=== PATIENT | female | born 1955 | race Caucasian/White ===

== ENCOUNTER 2017-12-31 09:56 | Day surgery (SDC) | payer OTHER ==
[~2017-12-31 09:56] MED LIST: ACETAZOLAMIDE 250 MG TAB PO; EPINEPHrine 1 MG INJ; LIDOCAINE 1% (MPF) 10 ML INJ; LIDOCAINE 2% (SDV) 5 ML INJ; PROPOFOL 200 MG INJ
[2017-12-31] MEDS ORDERED: ACETAZOLAMIDE 250 MG TAB PO (11:00)
[2017-12-31] MEDS: DICLOFENAC 0.1% 2.5 ML OPH OPER (11:17)
[2017-12-31] MEDS: TROPICAMIDE 1% 3 ML OPH OPER (11:18)
[2017-12-31] MEDS: PHENYLephrine 10% 5 ML OPH OPER (11:18)
[2017-12-31] MEDS: LIDOCAINE 3.5% GEL TUBE OPER (11:18)
[2017-12-31] MEDS: MOXIFLOXACIN 0.5% 3 ML OPH OPER (11:18)
[2017-12-31] MEDS: LIDOCAINE 1% (MPF) 10 ML INJ INJ ×2 (11:30)
[2017-12-31] MEDS ORDERED: MIDAZOLAM 1 MG/ML 2 ML INJ ×2 (12:00→12:05)
[2017-12-31] MEDS ORDERED: FENTAnyl 50 MCG/ML VIAL (12:00)
[2017-12-31] MEDS: TOBRAMYCIN/DEXAMETH 3.5 GM OPH OINT LEFT EYE (12:31)
[2017-12-31] MEDS ORDERED: MEPERIDINE 25 MG INJ IV (13:00)
[2017-12-31] MEDS ORDERED: ALBUTEROL 0.083% (NEB) 2.5 MG/3 ML AMP HHN (13:00)
[2017-12-31] MEDS ORDERED: EPHEDrine SULFATE 50 MG/5 ML SYG IV (13:00)
[2017-12-31] MEDS ORDERED: hydrALAzine 20 MG INJ IV (13:00)
[2017-12-31] MEDS ORDERED: DIPHENHYDRAMINE 50 MG INJ IV (13:00)
[2017-12-31] MEDS ORDERED: FENTAnyl 50 MCG/ML VIAL IV ×3 (13:00)
[2017-12-31] MEDS ORDERED: OXYCODONE/ACETAMINOPHEN (5/325) TAB PO ×2 (13:00)
[2017-12-31] MEDS ORDERED: LABETALOL HCL 20MG INJ IV (13:00)
[2017-12-31] MEDS ORDERED: MIDAZOLAM 1 MG/ML 2 ML INJ IV (13:00)
[2017-12-31] MEDS ORDERED: ONDANSETRON 4 MG INJ IV (13:00)
[2017-12-31] MEDS ORDERED: TOBRAMYCIN/DEXAMETH 3.5 GM OPH OINT (13:12)
[2017-12-31] MEDS ORDERED: NA HYALURONATE/CHONDROITIN 0.5 ML SYG (13:13)
== END 2017-12-31 14:05 | disposition home or self-care (01) ==
LOC: SDS 09:56
DX: H26.9 Unspecified cataract (principal); E03.9 Hypothyroidism, unspecified; J44.9 Chronic obstructive pulmonary disease, unspecified; Z88.2 Allergy status to sulfonamides; F32.9 Major depressive disorder, single episode, unspecified
CPT/HCPCS: 66984